=== PATIENT | male | born 1940 | race Caucasian/White ===

== ENCOUNTER → 2018-05-20 15:33 | Outpatient (REF) | payer MEDICARE, SELFPAY | LOC: LAB 15:33 | PROVIDERS: Visit Provider Urology | DX: N40.1 Benign prostatic hyperplasia with lower urinary tract symptoms (principal); R33.8 Other retention of urine; N13.8 Other obstructive and reflux uropathy | CPT/HCPCS: 87086; 87088; 87186 ==

== ENCOUNTER → 2018-07-22 17:17 | Outpatient (REF) | payer MEDICARE, SELFPAY | LOC: LAB 17:17 | PROVIDERS: Visit Provider Urology | DX: R33.8 Other retention of urine (principal) | CPT/HCPCS: 87086; 87088; 87186 ==

== ENCOUNTER → 2019-04-21 16:23 | Outpatient (CLI) | payer MEDICARE, SELFPAY | PROVIDERS: Visit Provider Urology | DX: R39.89 Other symptoms and signs involving the genitourinary system (principal) | CPT/HCPCS: 87086; 87088; 87186 ==

== ENCOUNTER → 2019-06-30 15:38 | Outpatient (CLI) | payer MEDICARE, SELFPAY | PROVIDERS: Visit Provider Urology | DX: R33.8 Other retention of urine (principal) | CPT/HCPCS: 87086 ==

== ENCOUNTER → 2019-08-04 16:43 | Outpatient (CLI) | payer MEDICARE, SELFPAY | PROVIDERS: Visit Provider Urology | DX: R33.8 Other retention of urine (principal) | CPT/HCPCS: 87086; 87088; 87186 ==

== ENCOUNTER 2021-04-20 13:58 | Emergency (ER) | payer MEDICARE, SELFPAY ==
[2021-04-20] VITALS (10 sets, daily range): BP systolic 159–196; BP diastolic 85–102; PULSE 77–90; RESP 18–20; TEMP 36.6; O2SAT 96–100; BMI 25.8
--- NOTE | 2021-04-20 14:10 | CT_ITS ---
PROCEDURE: CT CHEST WO CON CLINICAL INDICATION: fall Left-sided pain following injury, COMPARISON: No exams were available for comparison TECHNIQUE: Axial images obtained with sagittal and coronal reformats. All CT scans at the facility use one or more dose reduction, viz: automated exposure control, ma/kV adjustment per patient size (including targeted exams where dose is matched to indication, i.e. head), or iterative reconstruction technique. FINDINGS: HEART AND MEDIASTINAL STRUCTURES: There is coronary artery calcification noted. There is mild stranding of the mediastinal fat superiorly likely secondary to the sternal fracture described in the bony structures portion. No obvious aortic aneurysm. Aortic injury is not excluded without intravenous contrast enhancement. Small amount fluid is present in the superior recess of the pericardium. LUNGS AND PLEURAL SPACES: No evidence of pneumothorax. There are minimal atelectatic or fibrotic changes in the lung bases. Calcified granuloma is present in the left upper lobe BONY STRUCTURES: There is a mildly depressed and minimally displaced fracture involving the mid aspect of the manubrium. The fractures angled slightly posteriorly there is a transverse component of the fracture and longitudinal component which extends superiorly to the superior aspect of the manubrium slightly toward the left. UPPER ABDOMEN: Small hiatal hernia. Vague indeterminate hypodensity of the spleen centrally at 13 mm. Diverticulosis noted of the descending colon ADDITIONAL FINDINGS: No other significant abnormalities. IMPRESSION: Comminuted minimally depressed and minimally displaced fracture of the manubrium having both a transverse and a longitudinal component. There is some mild stranding of the mediastinal fat anteriorly. No evidence of aortic aneurysm. Traumatic aortic injury however is not excluded without intravenous contrast administration. Dictated by: Ranjan Zarco MD 04/20/2021 15:07 Ranjan Zarco MD in [facility] 04/20/2021 15:07
--- NOTE | 2021-04-20 14:10 | CT_ITS ---
PROCEDURE: CT CERVICAL SPINE WO CON CLINICAL INDICATION: fall Neck injury with pain, contusion/abrasion or hematoma, cervical sprain/strain the COMPARISON: No exams were available for comparison TECHNIQUE: Axial images obtained with sagittal and coronal reformats. All CT scans at the facility use one or more dose reduction, viz: automated exposure control, ma/kV adjustment per patient size (including targeted exams where dose is matched to indication, i.e. head), or iterative reconstruction technique. Axial spiral CT scanning performed of the cervical spine beginning at the base of the skull and continuing to the upper T-spine. 3-D multiplanar reconstruction with 3-D manipulation of volumetric data set in image rendering was completed by the radiologist and/or technologist with the supervision of the radiologist on independent workstation. FINDINGS: No acute fracture or dislocation. No lytic or blastic change. C2-C3: Mild degenerative disc disease. C 3 C4: Degenerative disc disease with mild facet hypertrophic change and mild left-sided foraminal narrowing. C4-C5: Degenerative disc disease with moderate left-sided foraminal narrowing from facet and uncovertebral hypertrophy. 2 mm anterolisthesis of C4 C5-C6: Degenerative disc disease with facet and uncovertebral hypertrophy with bilateral lateral recess and foraminal narrowing C6-C7: Degenerative disc disease with endplate hypertrophy with left foraminal narrowing. Lung apices are clear. IMPRESSION: No acute fracture. Cervical spondylosis as detailed above Dictated by: Ranjan Zarco MD 04/20/2021 14:59 Ranjan Zarco MD in [facility] 04/20/2021 14:59
--- NOTE | 2021-04-20 14:10 | CT_ITS ---
PROCEDURE: CT HEAD/BRAIN WO CON CLINICAL INDICATION: fall Pain, Head injury with headache/pain, contusion, abrasion or hematoma Loss of consciousness COMPARISON: No exams were available for comparison TECHNIQUE: Axial images obtained. All CT scans at the facility use one or more dose reduction, viz: automated exposure control, ma/kV adjustment per patient size (including targeted exams where dose is matched to indication, i.e. head), or iterative reconstruction technique. FINDINGS: No midline shift, mass effect, intracranial hemorrhage, hydrocephalus, or extra-axial fluid collection is evident. Senescent changes. Calvarium has an unremarkable appearance. No mastoid effusion. There is an air-fluid level left maxillary sinus with mucosal thickening of the left maxillary sinus and mild thickening of the wall the left maxillary sinus suggesting chronic inflammatory or infectious changes. There is mild mucosal thickening of the central aspect of the frontal sinus. IMPRESSION: 1. No acute intracranial findings. 2. Left maxillary sinusitis Dictated by: Ranjan Zarco MD 04/20/2021 14:55 Ranjan Zarco MD in [facility] 04/20/2021 14:55
--- NOTE | 2021-04-20 14:17 | PC.NURSE ---
Pt to rad
--- NOTE | 2021-04-20 14:33 | PC.NURSE ---
Pt returned from rad
--- NOTE | 2021-04-20 16:20 | CT_ITS ---
PROCEDURE INFORMATION: Exam: CTA Chest With Contrast Exam date and time: 04/20/2021 4:20 PM Age: 81 years old Clinical indication: Injury or trauma; Fracture, traumatic; Closed fracture; Patient HX: Fall, FX sternum; Additional info: Fall on chest TECHNIQUE: Imaging protocol: Computed tomographic angiography of the chest with contrast. 3D rendering (Not supervised by radiologist): MIP and/or 3D reconstructed images were created by the technologist. Radiation optimization: All CT scans at this facility use at least one of these dose optimization techniques: automated exposure control; mA and/or kV adjustment per patient size (includes targeted exams where dose is matched to clinical indication); or iterative reconstruction. Contrast material: ISOVUE; Contrast volume: 70 ml; Contrast route: INTRAVENOUS (IV); COMPARISON: CT CHEST WO CON 04/20/2021 2:23 PM FINDINGS: Pulmonary arteries: No pulmonary emboli. Aorta: No aortic aneurysm. No aortic dissection. Lungs: Unremarkable. No consolidation. No masses. Pleural spaces: Unremarkable. No pneumothorax. No pleural effusion. Heart: No cardiomegaly. No pericardial effusion. Mediastinal space: Small retrosternal hematoma. No acute contrast extravasation. Lymph nodes: No significant adenopathy. Bones/joints: Comminuted, minimally displaced sternal fracture involving the manubrium. Nondisplaced fracture of the left 1st costosternal junction and the left anterior 2nd rib. Thoracic kyphosis and degenerative change. Soft tissues: Small anterior chest wall hematoma and subcutaneous edema IMPRESSION: Minimally displaced sternal fracture, minimal retrosternal hematoma. Fractures of the left 1st costosternal junction and the left 2nd anterior rib.
[2021-04-20 16:43] LABS: Basophils # 0.1 K/mm3 (0-0.2); Basophils % 0.4 % (0.1-2.0); Eosinophils % 0.2 % (0.1-12.0); Hematocrit 50.2 % (42.0-52.0); Lymphocytes % 7.2 % (10-50); Mean Corpuscular HGB Conc 31.8 g/dL (31.8-35.4); Mean Corpuscular Hemoglobin 29.1 pg (27.0-31.2); Mean Corpuscular Volume 91.6 fl (80-94); Mean Platelet Volume 7.7 fl (7.4-10.4); Monocytes # 0.7 K/mm3 (0.1-1.0); Monocytes % 5.2 % (1.7-9.3); Neutrophils # 11.6 K/mm3 (1.8-7.8); Neutrophils % 86.9 % (37.0-80.0); Platelet Count 211 K/mm3 (142-424); Red Blood Count 5.49 M/mm3 (4.60-6.20); Red Cell Distribution Width 12.8 % (11.5-17.5); White Blood Count 13.3 K/mm3 (4.8-10.8)
[2021-04-20 16:46] LABS: Chloride 101 mmol/L (98-107); MANUAL DIFFERENTIAL MANUAL DIFFERENTIAL (MANUAL DIFF); Sodium 137 mmol/L (136-145)
[2021-04-20 16:47] LABS: Potassium 4.4 mmoL/L (3.5-5.1)
[2021-04-20 16:49] LABS: Alanine Aminotransferase 22 U/L (12-78); Albumin Level 4.7 g/dl (3.5-5.0); Albumin/Globulin Ratio 1.6 (1.1-1.8); Alkaline Phosphatase 102 U/L (38-126); Anion Gap 13.4 mEq/L (5-15); Aspartate Amino Transferase 38 U/L (17-59); Bilirubin,Total 1.1 mg/dl (0.2-1.3); Blood Urea Nitrogen 24 mg/dl (9-20); Carbon Dioxide 27 mmol/L (22.0-30.0); Creatinine Clearance Estimated 47 mL/min (50-200); Estimated Glomerular Filt Rate 53 ml/min (>60); GFR (African American) 64 ML/MIN (>60); Total Protein,Serum 7.7 g/dl (6.3-8.2)
[2021-04-20 16:50] LABS: Calcium 9.3 mg/dl (8.4-10.2); Glucose 136 mg/dl (74-100)
--- NOTE | 2021-04-20 16:54 | PC.NURSE ---
Pt to rad.
[2021-04-20 16:55] LABS: Lymphocytes % 7 % (10-50); Monocytes % 8 % (2-9); Neutrophils % 85 % (42-76); Platelet Estimate Normal; RBC Morphology Normal; Total Cells Counted 100
--- NOTE | 2021-04-20 18:02 | HMH.EDGENADL ---
ED Disposition Clinical Impression: Fall (on) (from) other stairs and steps, initial encounter, Laceration of scalp without foreign body, Sternal fracture with retrosternal contusion Disposition: Home, Self-Care Condition on Discharge: Fair Instructions: How to Prevent Falls Additional Instructions: Remove vadim in 5 to 7 days, continue neuro checks for the next 24 hours take Tylenol may add tramadol for pain relief use incentive spirometer activity as tolerated Referrals: Solomon Chavez MD [Primary Care Provider] - - Critical Care Critical Care Time: No Attestation: On 04/20/21, the high probability of a clinically significant, sudden or life threatening deterioration of the following system(s) required my full and direct attention, intervention and personal management. The time I documented below is in addition to time spent performing reported procedures but includes the following listed in this critical care notation. Medical Decision Making - Medical Records Medical records reviewed: Yes: I reviewed the patient's medical records. - Marcin Inquiry Pt receiving controlled substance: No Vital Signs: 04/20/21 14:01 04/20/21 14:36 04/20/21 15:00 Temperature 97.8 F Temperature Source Oral Pulse Rate 77 80 Pulse Rate [Left Radial] 89 Respiratory Rate 18 Blood Pressure 179/90 H 159/98 H Blood Pressure [Right Arm] 187/102 H Blood Pressure Mean Blood Pressure Mean [Right Arm] 130 Blood Pressure Source [Right Arm] Automatic Cuff Blood Pressure Position [Right Arm] Sitting 02 Sat by Pulse Oximetry 98 98 96 Oxygen Delivery Method Room Air 04/20/21 15:30 04/20/21 16:15 04/20/21 16:20 Temperature Temperature Source Pulse Rate 82 87 88 Pulse Rate [Left Radial] Respiratory Rate Blood Pressure 188/95 H 196/100 H 196/102 H Blood Pressure [Right Arm] Blood Pressure Mean 133 Blood Pressure Mean [Right Arm] Blood Pressure Source [Right Arm] Blood Pressure Position [Right Arm] 02 Sat by Pulse Oximetry 98 99 100 Oxygen Delivery Method 04/20/21 16:30 Temperature Temperature Source Pulse Rate 87 Pulse Rate [Left Radial] Respiratory Rate Blood Pressure 176/102 H Blood Pressure [Right Arm] Blood Pressure Mean 126 Blood Pressure Mean [Right Arm] Blood Pressure Source [Right Arm] Blood Pressure Position [Right Arm] 02 Sat by Pulse Oximetry 98 Oxygen Delivery Method - Lab Data Lab results reviewed: Yes: I reviewed the patient's lab results. Lab Results 04/20/21 16:30: WBC 13.3 H, RBC 5.49, Hgb 16.0, Hct 50.2, MCV 91.6, MCH 29.1, MCHC 31.8, RDW 12.8, Plt Count 211, MPV 7.7, Neut % (Auto) 86.9 H, Lymph % (Auto) 7.2 L, Crane % (Auto) 5.2, Eos % (Auto) 0.2, Baso % (Auto) 0.4, Neut # (Auto) 11.6 H, Lymph # (Auto) 1.0, Crane # (Auto) 0.7, Eos # (Auto) 0.0, Baso # (Auto) 0.1, Total Counted 100, Neutrophils % (Manual) 85 H, Lymphocytes % (Manual) 7 L, Monocytes % (Manual) 8, Platelet Estimate Normal, RBC Morphology Normal 04/20/21 16:30: Sodium 137, Potassium 4.4, Chloride 101, Carbon Dioxide 27, Anion Gap 13.4, BUN 24 H, Creatinine 1.30 H, Estimated Creat Clear 47, Estimated GFR 53 L, Est GFR ( Amer) 64, Glucose 136 H, Calcium 9.3, Total Bilirubin 1.1, AST 38, ALT 22, Alkaline Phosphatase 102, Total Protein 7.7, Albumin 4.7, Globulin 3.0, Albumin/Globulin Ratio 1.6 Patient is a diabetic Result diagrams: 04/20/21 16:30 04/20/21 16:30 Orders (Tests/Meds): ED MEDICATIONS Generic Name Dose Route Start Last Admin Trade Name Freq PRN Reason Stop Dose Admin Sodium Chloride 10 ml 04/20/21 17:11 04/20/21 17:12 Sodium Chloride 0.9% 10ml Syr (Rad Only) IV 05/20/21 17:10 10 ml NEEDED PRN Administration Maintain IV Site Discontinued Medications Generic Name Dose Route Start Last Admin Trade Name Freq PRN Reason Stop Dose Admin Iopamidol 70 ml 04/20/21 17:11 04/20/21 17:12 Iopamidol-370 (76%); 50ml Vial IV 04/20/21 17:
== END 2021-04-20 18:32 | disposition home or self-care (01) ==
PROVIDERS: Emergency Provider Emergency Medicine; PCP Family Medicine
DX: S01.01XA Laceration without foreign body of scalp, initial encounter (principal); S22.20XA Unspecified fracture of sternum, initial encounter for closed fracture; W07.XXXA Fall from chair, initial encounter; Y92.017 Garden or yard in single-family (private) house as the place of occurrence of the external cause; R03.0 Elevated blood-pressure reading, without diagnosis of hypertension; Z23 Encounter for immunization
CPT/HCPCS: 12002; 70450; 71250; 71275; 72125; 80053; 85007; 85025; 90715; 99283; Q9967

== ENCOUNTER → 2023-07-15 11:17 | Outpatient (CLI) | payer MEDICARE, SELFPAY ==
--- NOTE | 2023-07-15 12:21 | XR_ITS ---
FINAL REPORT CLINICAL HISTORY: RT HIP PAIN COMPARISON: None FINDINGS: RIGHT HIP Two views of the right hip demonstrate no acute fracture or dislocation. There is advanced right hip joint space narrowing. Subchondral sclerosis is noted. There is small degenerative cyst formation. The visualized bony structures are well aligned. No soft tissue abnormality is seen. 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 Reviewed, Interpreted and Dictated by Zane Guerra MD Transcribed by Juliette Thomas Authenticated and [facility]
== END ==
PROVIDERS: PCP Family Medicine; Visit Provider Family Medicine
DX: M25.551 Pain in right hip (principal)
CPT/HCPCS: 73502

== ENCOUNTER 2023-11-20 08:45 | Outpatient (CLI) | payer MEDICARE, SELFPAY | END 2023-11-20 23:59 | LOC: RAD 08:47 | PROVIDERS: PCP Family Medicine; Visit Provider Family Medicine | DX: G89.18 Other acute postprocedural pain (principal) ==

== ENCOUNTER 2024-08-17 17:22 | Emergency (ER) | payer MEDICARE, SELFPAY ==
[2024-08-17 17:35] VITALS: BP 162/82; PULSE 78; RESP 19; TEMP 36.6; O2SAT 98; BMI 24.2
--- NOTE | 2024-08-17 17:37 | ED_ITS ---
Discharge Plan Disposition Patient Disposition: Home, Self-Care Condition: Good Prescriptions Prescriptions: New cephalexin 500 mg capsule 500 mg PO QID 7 Days Qty: 28 0RF No Action tamsulosin 0.4 mg capsule 0.4 mg PO DAILY Patient Comments: TAKE 1 CAPSULE BY MOUTH EVERY DAY losartan-hydrochlorothiazide 100-12.5 mg tablet 1 tab PO DAILY Patient Comments: TAKE 1 TABLET BY MOUTH EVERY DAY Referrals Follow up/Referrals: Solomon Chavez MD [Primary Care Provider] - See instructions Activity Restrictions/Add. Instructions Additional Instructions/Restrictions: Keep the wound clean and dry. Watch the wound for signs of infection, such as redness, swelling, drainage, fever. etc. Take tylenol for pain. Take the antibiotics (cephlalexin) as directed. Follow up with your regular doctor. GO TO THE ER FOR ANY WORSENING SYMPTOMS OR CONCERNS. Clinical Impressions Clinical Impression: Laceration of scalp without foreign body Instructions Patient Instructions: DI for Avulsion Laceration (Not Requiring Sutures), Cephalexin Print Language Print Language: Kittitian Discharge ED Provider: Diaz Dowd 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 He denies any loc. He has a laceration on his scalp. His tetanus immunization is up to date. Related Data Home Medications ?Medication ?Instructions ?Recorded ?Confirmed losartan 100 1 tab PO DAILY 08/17/24 08/17/24 mg-hydrochlorothiazide 12.5 mg tablet tamsulosin 0.4 mg capsule 0.4 mg PO DAILY 08/17/24 08/17/24 Previous Rx's ?Medication ?Instructions ?Recorded cephalexin 500 mg capsule 500 mg PO QID 7 days #28 caps 08/17/24 Allergies Allergy/AdvReac Type Severity Reaction Status Date / Time Penicillins Allergy Verified 10/27/19 13:59 [facility] Disclaimer: The information contained in this section may have been updated after the patient was seen, as this information can be updated by other users. Social History Smoking Status: Former smoker tobacco type: cigars alcohol intake: never substance use type: denies use current occupational status: retired Travel in the last 8 weeks: None ROS Obtained: Yes All systems reviewed & no additional complaints except as documented Constitutional Constitutional: Denies chills and Denies fever(s) Eyes Eyes: Denies eye discharge ENT Ears, Nose, Mouth, and Throat: Denies dizziness, Denies otalgia and Denies sore throat Cardiovascular Cardiovascular: Denies chest pain Respiratory Respiratory: Denies shortness of breath, Denies chest congestion, Denies cough, Denies stridor and Denies wheezing Gastrointestinal Gastrointestingal: Denies nausea or vomiting Musculoskeletal Musculoskeletal: Reports system reviewed and no additional complaints, except as documented and Denies arthralgias Integumentary/Breasts Skin/Breast: Reports as per HPI Neurologic Neurologic: Denies dizziness and Denies paresthesias Allergic/Immunologic Allergic/Immunologic: Denies wheezing Physical Exam General General appearance: alert and in no apparent distress Head Head exam: atraumatic, normocephalic and normal inspection Eye Eye exam: Present normal appearance, PERRL and EOMI ENT ENT exam: Present normal exam, normal oropharynx, mucous membranes moist, TM's normal bilaterally and normal external ear exam Neck Neck exam: Present normal inspection, full ROM and trachea midline; Absent meningismus or lymphadenopathy Chest Chest inspection: Present normal inspection and symmetric chest wall rise; Absent tenderness Respiratory Respiratory exam: Present normal lung sounds bilaterally; Absent respiratory distress Cardiovascular Cardiovascular exam: Present regular rate and normal rhythm; Absent JVD Abdominal Exam Abdominal exam: Present soft and normal bowel sounds; Absent distention, tenderness or guarding Extremities Exam Extremities exam: Present normal inspection, full ROM and normal capillary refill; Absent calf tenderness Back Exam Back exam: Present normal inspection; Absent tenderness Neurological Exam Neurological exam: Present alert and oriented X3 Psychiatric Psychiatric exam: Present normal affect and normal mood Skin Skin exam: Present other (there is a 1 cm linear laceration on the top of his scalp, there is no deep tissue damage, no foreign body. ) Lymphatic Lymphatic Findings: no adenopathy Medical Decision Making Medical Records Medical records reviewed: No I reviewed the patient's medical records. Screening: Per USPSTF and CDC recommendations, given the prevalence of disease in our region, it is our hospital?s policy to screen for HIV and viral Hepatitis for all patients aged 18 and over and those with ongoing risk factors. Marcin Inquiry Pt receiving controlled substance: No Medical Decision Narrative: He refuses to have the wound closed with vadim.
--- NOTE | 2024-08-17 18:17 | PC.NURSE ---
AREA CLEANED WITH HIBICLENSE AND STERILE WATER, STERI STRIP APPLIED
[2024-08-17 18:25] VITALS: BP 162/82; PULSE 78; RESP 19; TEMP 36.6; O2SAT 98
== END 2024-08-17 18:28 | disposition home or self-care (01) ==
PROVIDERS: Emergency Provider Nurse Practitioner Family; PCP Family Medicine
DX: S01.01XA Laceration without foreign body of scalp, initial encounter (principal); W26.8XXA Contact with other sharp object(s), not elsewhere classified, initial encounter
CPT/HCPCS: 99204; 99212; G0463

== ENCOUNTER 2025-08-02 11:14 | Emergency (ER) | payer OTHER, SELFPAY ==
[2025-08-02 11:16] VITALS: BP 170/96; PULSE 115; RESP 17; TEMP 37; O2SAT 96
--- NOTE | 2025-08-02 11:24 | ECG_ITS ---
APPROVED REPORT Exam: Resting ECG HR:114 bpm ECG Measurements Heart Rate 114 AXES [place] 199 P 226 QRSd 138 QRS 110 QT 333 T -33 QTc 401 Conclusion SINUS TACHYCARDIA POSSIBLE LEFT ATRIAL ENLARGEMENT [-0.1mV P-WAVE IN V1/V2] RIGHT AXIS DEVIATION [QRS AXIS > 100] INTRAVENTRICULAR CONDUCTION DELAY [130+ ms QRS DURATION] POSSIBLE ANTERIOR MYOCARDIAL INFARCTION , OF INDETERMINATE AGE [30 ms Q WAVE IN V3/V4, OR R < 0.2 mV IN V4] ABNORMAL ECG UNCONFIRMED REPORT Electronically signed by : Diaz Hawk, 08/02/2025 15:26:04
--- OUTSIDE RECORDS SUMMARY | 2025-08-02 11:25 | XMS_ITS | Clinical Summary ---
Author Organization [employer] ([place], [place], [place], [place]) Address [address] [place] [address] Care Team Providers Care Knuckle Strap Sewer Name Role Phone Martinez Chavez MD Primary Care Provider [phone] Allergies Active Allergy Reactions Criticality Noted Date Comments Penicillin Rash High 08/09/2023 Medications losartan-hydroc hlorothiazide (HYZAAR) 100-12.5 mg per tablet Take 1 tablet by mouth daily. Active tamsulosin (FLOMAX) 0.4 mg Cap 24 hr capsule Take 1 capsule (0.4 mg total) by mouth daily. 10/15/2023 Active Active Problems Problem Noted Date Diagnosed Date Bilateral inguinal hernia wi th obstruction and without gangrene 09/24/2023 Family History Medical History Relation Name Comments Arthritis Mother Hypertension Mother Breast cancer Sister Relation Name Status Comments Mother Sister Social History Tobacco Use Types Packs/Day Years Used Date Smoking Tobacco: Former Cigars Smokeless Tobacco: Never Tobacco Cessation:Counseling Given: Not Answered Comments:Quit 25 years ago Alcohol Use Standard Drinks/Week Comments Never 0 (1 standard drink = 0.6 oz pur e alcohol) PRAPARE - Transportation Answer Date Re corded In the past 12 months, has l ack of transportation kept you from medical appointments or from getting medications? No 09/24/2023 Lack of Transportation (Non-Medical) Not on file 09/24/2023 Food Insecurity Answer Date Recorded Food run out past 12 months Not on file 11/18 Food did not last past 12 months Not on file 11/29/2023 Employment Answer Date Recorded Help finding and keeping a job Not on file 0 11/29/2023 Family and Community Support Answer Paras e Recorded Help with Day to Day Activities Not on file 11/29/2023 Feeling Lonely or Isolated Not on file 11/29 Educational Attainment Answer Date Dexter rded Speak language other than Kinyarwanda at home Not on file 11/29/2023 Want help with school or training Not on file 11/29/2023 Substance Use Answer Date Recorded Used prescription meds for non-medical reasons N ot on file 11/29/2023 Used illegal drugs past 12 months Not on file 11/29/2023 Sex and Gender Information Value Date Recorded Sex Assigned at Not on file Legal Sex Male 8:18 PM CDT Gender Identity Not on file Sexual Orientation Not on file Last Filed Vital Signs Vital Sign Reading Time Taken Comments Blood Pressure 152/86 11/21/2023 10:03 AM EST Pulse 89 11/21/2023 10:03 AM EST Temperature 36.7 C (98.1 F) 09/25/2023 2:20 PM EST Respiratory Rate 18 09/25/2023 10:45 AM EST Oxygen Saturation 96% 09/25/2023 10:45 AM EST Inhaled Oxygen Concentration - - Weight 73.5 kg (162 lb) 11/21/2023 10:03 AM EST Height 167.6 cm (5' 6 ) 11/21/2023 10:03 AM EST Body Mass Index 26.15 11/21/2023 10:03 AM EST Plan of Treatment Health Maintenance Due Date Last Done Comments Depression Screening (12+) 1952 Pneumococcal 50+ years (1 of 1 - PCV) 1991 Shingles Vaccine (Zoster) (1 of 2) 1991 Medicare Initial AWV G0438 03/19/2007 Respiratory Syncytial Virus (RSV) Adult or (1 - 1-dose 75+ series) 2016 Falls Risk Screening 11/18/2024 Tobacco Cessation Counseling and Screening (12+) 11/21/2024 11/21/2023 COVID-19 VACCINE (4 - 2024- season) 2025 09/13/2021, 12/28/2020, 11/30/2020 Influenza Vaccine (#1) 2025 DTAP/TDAP/TD VACCINES (3 - T d or Tdap) 04/20/2031 04/20/2021, 01/21/1997 Medical Devices Implanted Type Area Video Clerk Device Identifier Shelf Expiration Date Model / Serial / Lot Mesh Destini 3d Max Lg 4x6in R [id number] - [id number] Implanted:Qt y: 1 on 09/24/2023 by Darin Palmer MD at [facility] IMPLANTS Right: Inguinal CR BARD:DAVOL 03/15/2028 [id number] / / [id number] Mesh Destini 3d Max Lg 4x6in L [id number] - [id number] Implanted:Qt y: 1 on 09/24/2023 by Darin Pamler MD at [facility] IMPLANTS N/A: Groin CR BARD:DAVOL [id number] 04/14/2028 [id number] / / [id number] Insurance [place] [address] [address] [place] [address] Advance Directives For more information, please contact: [phone] * Full Code (Latest Code Status on File) Date Activated Date Inactivated Comments 09/24/2023 2:39 PM 09/25/2023 4:39 PM If no pulse: No intervention If has pulse: Use intubation, mechanical ventilation, defibrillation, ACLS medications, or cardioversion as indicated. Call MASS SPECTROMETRY MANAGER * Full Code Date Activated Date Inactivated Comments 09/24/2023 8:18 AM 09/24/2023 2:39 PM Care Teams Knuckle Strap Sewer Relationship Specialty Start Date End Date Martinez Chavez MD [address] [place] [address] PCP - General Family Medicine 07/30/23
--- OUTSIDE RECORDS SUMMARY | 2025-08-02 11:25 | XMS_ITS | Referral Summary ---
Author Organization [employer] ([place], [place], [place], [place]) Address [address] [place] [address] Care Team Providers Care Electronics Processing Supervisor Name Role Phone Martinez Chavez MD Primary Care Provider [phone] Allergies Active Allergy Reactions Criticality Noted Date Comments Penicillin Rash High 08/09/2023 Medications losartan-hydroc hlorothiazide (HYZAAR) 100-12.5 mg per tablet Take 1 tablet by mouth daily. Active tamsulosin (FLOMAX) 0.4 mg Cap 24 hr capsule Take 1 capsule (0.4 mg total) by mouth daily. 10/15/2023 Active Active Problems Problem Noted Date Diagnosed Date Bilateral inguinal hernia wi th obstruction and without gangrene 09/24/2023 Social History Tobacco Use Types Packs/Day Years [...] Date Dexter rded Speak language other than Armenian at home Not on file 11/29/2023 Want [...] 11/21/2023 10:03 AM EST Plan of Treatment Not on file Medical Devices Implanted Type Area Machine Hose Cutter Device Identifier Shelf Expiration Date Model / Serial / Lot Mesh Destini 3d Max Lg 4x6in R [id number] - [id number] Implanted:Qt y: 1 on 09/24/2023 by Darin Palmer MD at [facility] IMPLANTS Right: Inguinal CR BARD:DAVOL 03/15/2028 [id number] / / [id number] Mesh Destini 3d Max Lg 4x6in L [id number] - [id number] Implanted:Qt y: 1 on 09/24/2023 by Darin Palmer MD at [facility] IMPLANTS N/A: Groin CR BARD:DAVOL [id number] 04/14/2028 [id number] / / [id number] Insurance KATHI MARRUFO [id number] MEDICARE PART A B SUPP Advance Directives For more information, please contact: [phone] * Full Code (Latest Code Status on File) Date Activated Date Inactivated Comments 09/24/2023 2:39 PM 09/25/2023 4:39 PM If no pulse: No intervention If has pulse: Use intubation, mechanical ventilation, defibrillation, ACLS medications, or cardioversion as indicated. Call X RAY TECHNICIAN * Full Code Date Activated Date Inactivated Comments 09/24/2023 8:18 AM 09/24/2023 2:39 PM Care Teams Electronics Processing Supervisor Relationship Specialty Start Date End Date Martinez Chavez MD [address] [place] [address] PCP - General Family Medicine 07/30/23
[2025-08-02 11:35] LABS: POC Glucose,Bedside 111 gm/dL (70-110)
[2025-08-02 12:00] VITALS: BP 161/81; PULSE 109; RESP 17; O2SAT 98
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
[2025-08-02 12:49] VITALS: BP 154/92; PULSE 91; RESP 17; TEMP 37; O2SAT 98
== END 2025-08-02 12:51 | disposition home or self-care (01) ==
PROVIDERS: Emergency Provider Student in an Organized Health Care Education/Training Program; PCP Family Medicine
DX: R41.0 Disorientation, unspecified (principal); V59.40XA Driver of pick-up truck or van injured in collision with unspecified motor vehicles in traffic accident, initial encounter
CPT/HCPCS: 82962; 93005; 99283; 99284; 99285

== ENCOUNTER 2025-08-05 12:14 | Outpatient (CLI) | payer MEDICARE, SELFPAY ==
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
[2025-08-05 12:37] LABS: Blood Urea Nitrogen 18 mg/dl (9-20); Creatinine,Serum 1.20 mg/dl (0.66-1.25); Estimated Glomerular Filt Rate 58 ml/min (>60); GFR (African American) 70 ML/MIN (>60)
[2025-08-05] MEDS: SODIUM CHLORIDE 0.9% 10ML SYR (RAD ONLY) 10 ML IV (13:18)
[2025-08-05] MEDS: GADOTERIDOL INJ 20ML SYRINGE 13 ML IV (13:18)
== END 2025-08-05 23:59 | disposition home or self-care (01) ==
LOC: RAD 12:15
PROVIDERS: PCP Family Medicine; Visit Provider Family Medicine
DX: G31.9 Degenerative disease of nervous system, unspecified (principal); J32.8 Other chronic sinusitis; R90.89 Other abnormal findings on diagnostic imaging of central nervous system; R41.3 Other amnesia
CPT/HCPCS: 36415; 70553; 82565; 84520; A9576